=== PATIENT | female | born 1935 | race Caucasian/White ===

== ENCOUNTER 2017-11-15 03:18 | Emergency (ER) | payer MEDICARE, BC ==
[~2017-11-15] VITALS: Ht 170.2 cm; Wt 96.2 kg
--- NOTE | 2017-11-15 03:32 | NUR ---
Dr. Vora at bedside for MSE.
[2017-11-15] MEDS ORDERED: FLUO20TA28 PO (03:34)
[2017-11-15] MEDS ORDERED: [UNRECOGNIZED DRUG - CODE] PO (03:34)
[2017-11-15] MEDS ORDERED: ASPI-605 PO (03:34)
[2017-11-15] MEDS ORDERED: ATOR40TA PO (03:34)
--- NOTE | 2017-11-15 04:32 | NUR ---
Patient discharged to home in stable conditon. Written and verbal after care instructions given. Patient verbalizes understanding of instructions. Pt ambulated out of ER with steady gait, no acute signs of distress, VSS, all belongings taken.
[2017-11-15 04:34] VITALS: BP 159/71
== END 2017-11-15 04:36 | disposition home or self-care (01) ==
LOC: ER 03:22
DX: I10 Essential (primary) hypertension (principal); E78.5 Hyperlipidemia, unspecified; F17.200 Nicotine dependence, unspecified, uncomplicated
CPT/HCPCS: 93005; A4663

== ENCOUNTER 2020-03-30 08:49 | Emergency (ER) | payer MEDICARE, BC ==
[~2020-03-30] VITALS: Ht 175.3 cm; Wt 95.3 kg
[~2020-03-30 08:49] MED LIST: AMLO-555 PO; ASPI-605 PO; ATOR40TA PO; FLUO20TA28 PO
[2020-03-30] MEDS ORDERED: NEBI20TA2 PO (09:32)
[2020-03-30] MEDS ORDERED: BUSP10TA3 PO (09:32)
[2020-03-30] MEDS ORDERED: OLME40TA12 PO (09:32)
[2020-03-30] MEDS ORDERED: CARV25TA2 PO (09:32)
[2020-03-30] MEDS ORDERED: CHLO25TA2 PO (09:32)
[2020-03-30 09:49] LABS: BASOPHILS % (AUTO) 0.9 % (0.0-2.0); EOSINOPHILS % (AUTO) 0.9 % (0.0-7.0); HEMATOCRIT 40.8 % (31.2-41.9); HEMOGLOBIN 13.8 g/dL (10.9-14.3); LYMPHOCYTES # (AUTO) 0.7 K/uL (20.0-40.0); LYMPHOCYTES % (AUTO) 19.6 % (20.5-51.5); MEAN CORPUSCULAR HEMOGLOBIN 31.7 uug (24.7-32.8); MEAN CORPUSCULAR HGB CONC 34 g/dL (32.3-35.6); MEAN CORPUSCULAR VOLUME 93.7 fL (75.5-95.3); MONOCYTES # (AUTO) 0.6 K/uL (2.0-10.0); MONOCYTES % (AUTO) 17.3 % (0.0-11.0); NEUTROPHILS # (AUTO) 2.1 K/uL (1.8-8.9); NEUTROPHILS % (AUTO) 61.3 % (38.5-71.5); PLATELET COUNT (AUTO) 127 K/uL (179-408); RED BLOOD CELL COUNT(AUTO) 4.35 MIL/uL (3.63-4.92); WHITE BLOOD COUNT (AUTO) 3.4 K/uL (3.8-11.8)
[2020-03-30 10:00] LABS: CREATININE 1.1 mg/dL (0.6-1.3)
[2020-03-30 10:12] LABS: BILIRUBIN,TOTAL 0.6 mg/dL (0.2-1.0); TOTAL PROTEIN, SERUM 7.3 g/dL (6.4-8.2)
--- NOTE | 2020-03-30 10:30 | NUR ---
ROSY MASTERSON TALKED TO PT PCP.
--- NOTE | 2020-03-30 10:37 | NUR ---
PT ON BED, ABLE TO TALK IN FULL SENTENCES. PT ON OXYGEN 3 LITRE VIA NC, SAT 97%.
--- NOTE | 2020-03-30 10:54 | NUR ---
Patient does not wish to proceed with medical care recommended by Dr. Mellissa CARLSON ). Patient given information related to possible complications, up to and including , which could occur as a result of leaving the hospital at this time. Patient verbalizes understanding of risks involved due to leaving against medical advice. Patient has signed AMA form.PT SON WILL COME AND TAKE PT TO [facility] WHERE HER PCP IS. ER MD ORDERED TO KEEP THE HEPLOCK, WRAPPED THE HEPLOCK TO PROTECT IR. PT AXO4.
[2020-03-30 10:57] VITALS: BP 121/74
[2020-03-30 18:27] LABS: LYMPHOCYTES % (MANUAL) 20 % (20-40); MONOCYTES % (MANUAL) 18 % (2-10); NEUTROPHILS % (MANUAL) 60 % (42-75)
[2020-03-30 18:28] LABS: BASOPHILS % (MANUAL) 1 % (0-2); EOSINOPHILS % (MANUAL) 1 % (0-8)
== END 2020-03-30 10:58 | disposition left against medical advice (07) ==
LOC: ER 08:49
DX: U07.1 COVID-19 (principal); J96.01 Acute respiratory failure with hypoxia; R79.1 Abnormal coagulation profile; R79.82 Elevated C-reactive protein (CRP); R60.0 Localized edema; Z96.653 Presence of artificial knee joint, bilateral; Z96.641 Presence of right artificial hip joint; E78.5 Hyperlipidemia, unspecified; Z79.899 Other long term (current) drug therapy; I25.10 Atherosclerotic heart disease of native coronary artery without angina pectoris
CPT/HCPCS: 36415; 71045; 80053; 82550; 82728; 83605; 83615; 83880; 84145; 84484; 85007; 85025; 85379; 85385; 85730; 86140; 87040; 87426; 93005; 99291; U0003; 70030-TC; A4663

== ENCOUNTER 2021-08-20 16:26 | Emergency (ER) | payer MEDICARE, BC ==
[~2021-08-20] VITALS: Ht 170.2 cm; Wt 90.7 kg
[~2021-08-20 16:26] MED LIST changes: -AMLO-555 PO; +BUSP10TA3 PO; +CARV25TA2 PO; +CHLO25TA2 PO; +NEBI20TA2 PO; +OLME40TA12 PO
[2021-08-20] MEDS ORDERED: LIDOCAINE HCL 1% 20 ML VIAL ONE (17:34)
[2021-08-20] MEDS ORDERED: LIDOCAINE HCL 1% 20 ML VIAL IJ ONE (18:00)
[2021-08-20] MEDS ORDERED: TDAP DIPH,PERTUSS,TET VAC/PF 0.5 ML DISP.SYRIN IM ONE ×2 (18:39→18:45)
--- NOTE | 2021-08-20 18:42 | NUR ---
Patient discharged to home in stable condition. Written and verbal after care instructions given. Patient verbalizes understanding of instructions. Stressed follow up or return to ER for worsening s/s. Patient out of ER with steady gait, no acute signs of distress, VSS, all belongings taken.
[2021-08-20 18:43] VITALS: BP 148/90
== END 2021-08-20 18:43 | disposition home or self-care (01) ==
LOC: ER 16:26
DX: S81.811A Laceration without foreign body, right lower leg, initial encounter (principal); W22.8XXA Striking against or struck by other objects, initial encounter; Y93.B4 Activity, pilates; Y92.89 Other specified places as the place of occurrence of the external cause; Z96.653 Presence of artificial knee joint, bilateral; Z96.641 Presence of right artificial hip joint; F17.200 Nicotine dependence, unspecified, uncomplicated; Z79.82 Long term (current) use of aspirin; Z79.899 Other long term (current) drug therapy
CPT/HCPCS: 12001; 99283; J3490; 90715; A4663

== ENCOUNTER 2021-08-27 15:29 | Emergency (ER) | payer MEDICARE, BC ==
[~2021-08-27] VITALS: Ht 170.2 cm; Wt 90.7 kg
--- NOTE | 2021-08-27 16:20 | NUR ---
at bedside, medical screening wxam in progress.
[2021-08-27] MEDS ORDERED: CLINDAMYCIN HCL 300 MG CAPSULE ONE (16:25)
[2021-08-27] MEDS ORDERED: CLIN300C12 PO (16:26)
[2021-08-27] MEDS ORDERED: CLINDAMYCIN HCL 150 MG CAPSULE PO ONE (16:30)
--- NOTE | 2021-08-27 16:33 | NUR ---
Patient discharged to home in stable condition. Written and verbal after care instructions given. Patient verbalizes understanding of instructions. Stressed follow up or return to ER for worsening s/s.
[2021-08-27 16:35] VITALS: BP 112/70
== END 2021-08-27 16:35 | disposition home or self-care (01) ==
LOC: ER 15:31
DX: R60.0 Localized edema (principal); S81.811D Laceration without foreign body, right lower leg, subsequent encounter; X58.XXXD Exposure to other specified factors, subsequent encounter; Z96.653 Presence of artificial knee joint, bilateral; Z96.641 Presence of right artificial hip joint; F17.200 Nicotine dependence, unspecified, uncomplicated
CPT/HCPCS: A4663